=== PATIENT | male | born 1995 | race African-American/Black ===

== ENCOUNTER 2021-03-23 17:14 | Emergency (ER) | payer OTHER ==
[~2021-03-23] VITALS: Ht 175.3 cm; Wt 69.0 kg
[2021-03-23] MEDS ORDERED: IV NORMAL SALINE 1,000ML 1,000 ML IV ONE (17:30)
[2021-03-23] MEDS ORDERED: diphenhydrAMINE 50 MG/ML VIAL IVP ONE (17:30)
[2021-03-23] MEDS ORDERED: diphenhydrAMINE 50 MG/ML VIAL ONE (17:33)
[2021-03-23 17:56] LABS: BASO % 1 % (0-3); EOS # 0.1 x10^3/uL (0.0-0.7); EOS % 2 % (0-3); HEMATOCRIT 45.3 % (39.0-53.0); HEMOGLOBIN 15.3 g/dL (13.0-17.5); LYMPH # 1.9 x10^3/uL (1.0-4.8); LYMPH % 30 % (24-48); MEAN CORPUSCULAR HEMOGLOBIN 31 pg (25-35); MEAN CORPUSCULAR HGB CONC 34 g/dL (31-37); MEAN CORPUSCULAR VOLUME 90 fL (79-100); MONO # 0.6 x10^3/uL (0.0-1.1); MONO % 10 % (0-9); NEUT # 3.5 x10^3uL (1.8-7.7); NEUT % 57 % (31-73); PLATELET COUNT 286 x10^3/uL (140-400); RED BLOOD COUNT 5.03 x10^6/uL (4.30-5.70); RED CELL DISTRIBUTION WIDTH 13.6 % (11.5-14.5); WHITE BLOOD COUNT 6.2 x10^3/uL (4.0-11.0)
--- NOTE | 2021-03-23 17:59 | PHYS DOC ---
Past History Past Surgical History: No Surgical History (GINETTE MORENO DO) Alcohol Use: Rarely (GINETTE MORENO DO) General Adult EDM: Chief Complaint: HALLUCINATIONS AUDIBLE/VISUAL HPI: HPI: 25-year-old male presents via EMS after doing drugs. Patient is having hallucinations and feels like he is short of breath. He states that he took too many marijuana edibles. He was reporting visual hallucinations to EMS. He does not report anything specific to me. He feels like he is short of breath. He has no other specific complaints at this time. (GINETTE MORENO DO) Review of Systems: Review of Systems: Constitutional: Denies fever or chills Eyes: Denies change in visual acuity HENT: Denies nasal congestion or sore throat Respiratory: Denies cough or shortness of breath Cardiovascular: Denies chest pain or edema GI: Denies abdominal pain, nausea, vomiting, bloody stools or diarrhea : Denies dysuria Musculoskeletal: Denies back pain or joint pain Integument: Denies rash Neurologic: Denies headache, focal weakness or sensory changes Endocrine: Denies polyuria or polydipsia Lymphatic: Denies swollen glands Psychiatric: Visual hallucinations (GINETTE MORENO DO) Current Medications: Current Meds: Current Medications Medications (Trade) Dose Ordered Sig/Renae Start Time Stop Time Status Last Admin Dose Admin Diphenhydramine HCl (Benadryl) 50 mg STK-MED ONCE 03/23/21 17:33 03/23/21 17:33 DC Sodium Chloride 1,000 ml @ 1,000 mls/hr 1X ONCE 03/23/21 17:30 03/23/21 18:29 03/23/21 17:35 1,000 MLS/HR (GINETTE MORENO DO) Allergies: Allergies: Allergies Coded Allergies Type Severity Reaction Last Updated Verified No Known Drug Allergies 03/23/21 No (GINETTE MORENO DO) Physical Exam: PE: Constitutional: Well developed, well nourished, no acute distress, non-toxic appearance. [] HENT: Normocephalic, atraumatic, bilateral external ears normal, oropharynx moist, no oral exudates, nose normal. [] Eyes: PERRLA, EOMI, conjunctiva normal, no discharge. [] Neck: Normal range of motion, no tenderness, supple, no stridor. [] Cardiovascular: Heart rate regular rhythm, no murmur [] Lungs & Thorax: Bilateral breath sounds clear to auscultation [] Abdomen: Bowel sounds normal, soft, no tenderness, no masses, no pulsatile masses. [] Skin: Warm, dry, no erythema, no rash. [] Back: No tenderness, no CVA tenderness. [] Extremities: No tenderness, no cyanosis, no clubbing, ROM intact, no edema. [] Neurologic: Alert and oriented X 3, normal motor function, normal sensory function, no focal deficits noted. [] Psychologic: Affect pressured and scattered, judgement questionable, mood anxious. [] (GINETTE MORENO DO) Current Patient Data: Vital Signs: Vital Signs Date Time Temp Pulse Resp B/P (MAP) Pulse Ox O2 Delivery O2 Flow Rate FiO2 03/23/21 17:21 98.2 100 26 147/83 (104) 100 Room Air (GINETTE MORENO DO) EKG: EKG: [] (GINETTE MORENO DO) Radiology/Procedures: Radiology/Procedures: [] (GINETTE MORENO DO) Heart Score: C/O Chest Pain: N/A Risk Factors: Risk Factors: DM, Current or recent (<one month) smoker, HTN, HLP, family his tory of CAD, obesity. Risk Scores: Score 0 - 3: 2.5% MACE over next 6 weeks - Discharge Home Score 4 - 6: 20.3% MACE over next 6 weeks - Admit for Clinical Observation Score 7 - 10: 72.7% MACE over next 6 weeks - Early Invasive Strategies (GINETTE MORENO DO) Course & Med Decision Making: Course & Med Decision Making Pertinent Labs and Imaging studies reviewed. (See chart for details) The patient does not appear to be having any difficulty breathing. His oxygen saturation is 99% on room air. He is very fidgety and moving in the bed. Have given him 50 mg of Benadryl IV and ordered a chest x-ray. I am signing the patient out to Dr. Domingo at 1800. [] (GINETTE MORENO DO) Course & Med Decision Making Patient care handed off to me at checkout pending clinical sobriety from edible marijuana. Patient awake, alert and oriented able to take p.o. States he is feeling well and wants to go home. Discussed all findings with patient. Advised to cease taking any sort of medications unless prescribed by a physician. Vital signs now unremarkable. Patient able to sit, stand and walk without issue and asking to be discharged home. Advised to follow-up in the morning with his primary care physician. Gave return precautions to the ED. Patient grateful, verbalized understanding and agreed with plan of discharge. (GABBY DOMINGO MD) Dragon Disclaimer: Dragon Disclaimer: This electronic medical record was generated, in whole or in part, using a voice recognition dictation system. (GINETTE MORENO DO) Departure Departure: Impression: Primary Impression: Drug abuse Additional Impression: Visual hallucinations Disposition: HOME / SELF CARE / HOMELESS Condition: GOOD Referrals: WYATT ALEXIS MD Patient Instructions: Marijuana Abuse-Brief Additional Instructions: Thanks for coming into the emergency department tonight and allowing us to take care of you. Please read the attached information carefully to go back over some of the things we discussed. Please do not take any substances unless prescribed by a physician. Please be sure to stay hydrated and eat healthy meals. Please call your primary care physician in the morning or the 1 at the number provided to establish care to set up a follow-up visit. Please come back to the emergency department with new or concerning symptoms as we discussed. GINETTE MORENO DO Mar 23, 2021 17:59 GABBY DOMINGO MD Mar 23, 2021 19:13
[2021-03-23 18:34] LABS: CALCIUM 8.7 mg/dL (8.5-10.1); CREATININE 0.9 mg/dL (0.7-1.3); GFR 104.6; POTASSIUM 3.5 mmol/L (3.5-5.1)
--- NOTE | 2021-03-23 18:34 | RAD ---
XR CHEST 1V History: Reason: SOB / Spl. Instructions: / History: Comparison: None. Findings: No consolidation or pleural effusion. Normal heart size. No pneumothorax. Impression: 1. No acute cardiopulmonary process. Electronically signed by: Devin Olivares DO (03/23/2021 6:31 PM) [facility]
[2021-03-23 18:40] LABS: ALBUMIN 4.1 g/dL (3.4-5.0); ALBUMIN/GLOBULIN RATIO 1.2 (1.0-1.7); TOTAL BILIRUBIN 0.5 mg/dL (0.2-1.0); TOTAL PROTEIN 7.4 g/dL (6.4-8.2)
[2021-03-23 19:16] VITALS: BP 135/80
== END 2021-03-23 19:17 | disposition home or self-care (01) ==
LOC: ER 18:07
DX: R44.1 Visual hallucinations (principal); F12.10 Cannabis abuse, uncomplicated
CPT/HCPCS: 36415; 71045; 80053; 85025; 96361; 96374; 99284; J1200; J7030

== ENCOUNTER 2021-06-21 16:58 | Emergency (ER) | payer OTHER ==
[~2021-06-21] VITALS: Ht 175.3 cm; Wt 67.2 kg
--- NOTE | 2021-06-21 17:25 | PHYS DOC ---
Past History Past Surgical History: No Surgical History Alcohol Use: None General Adult EDM: Chief Complaint: RECTAL BLEED HPI: HPI: 25-year-old male presents with blood in his stool. The patient had a bowel movement today which was very loose and it was laced with red blood. The patient never had this before. He came in for evaluation. He states that it was painless at the time and he has no abdominal or rectal pain at this time. No history of bowel issues. He has had diarrhea for the last 2 to 3 days which she thinks is related to drinking a lot of eggnog. He denies fever or chills. He has no other complaints this time. Review of Systems: Review of Systems: Constitutional: Denies fever or chills Eyes: Denies change in visual acuity HENT: Denies nasal congestion or sore throat Respiratory: Denies cough or shortness of breath Cardiovascular: Denies chest pain or edema GI: Diarrhea, blood in stool. Denies abdominal pain, nausea, vomiting. : Denies dysuria Musculoskeletal: Denies back pain or joint pain Integument: Denies rash Neurologic: Denies headache, focal weakness or sensory changes Endocrine: Denies polyuria or polydipsia Lymphatic: Denies swollen glands Psychiatric: Denies depression or anxiety Allergies: Allergies: Allergies Coded Allergies Type Severity Reaction Last Updated Verified No Known Drug Allergies 06/21/21 No Physical Exam: PE: Constitutional: Well developed, well nourished, no acute distress, non-toxic appearance. [] HENT: Normocephalic, atraumatic, bilateral external ears normal, oropharynx moist, no oral exudates, nose normal. [] Eyes: PERRLA, EOMI, conjunctiva normal, no discharge. [] Neck: Normal range of motion, no tenderness, supple, no stridor. [] Cardiovascular:Heart rate regular rhythm, no murmur [] Lungs & Thorax: Bilateral breath sounds clear to auscultation [] Abdomen: Bowel sounds normal, soft, no tenderness, no masses, no pulsatile masses. [] Skin: Warm, dry, no erythema, no rash. [] Back: No tenderness, no CVA tenderness. [] Extremities: No tenderness, no cyanosis, no clubbing, ROM intact, no edema. [] Neurologic: Alert and oriented X 3, normal motor function, normal sensory function, no focal deficits noted. [] Psychologic: Affect normal, judgement normal, mood normal. : normal external rectum, EDILBERTO unremarkable, no significant pain [] Current Patient Data: Vital Signs: Vital Signs Date Time Temp Pulse Resp B/P (MAP) Pulse Ox O2 Delivery O2 Flow Rate FiO2 06/21/21 17:09 98.5 80 18 110/78 (89) 98 Room Air EKG: EKG: [] Radiology/Procedures: Radiology/Procedures: [] Heart Score: C/O Chest Pain: N/A Risk Factors: Risk Factors: DM, Current or recent (<one month) smoker, HTN, HLP, family history of CAD, obesity. Risk Scores: Score 0 - 3: 2.5% MACE over next 6 weeks - Discharge Home Score 4 - 6: 20.3% MACE over next 6 weeks - Admit for Clinical Observation Score 7 - 10: 72.7% MACE over next 6 weeks - Early Invasive Strategies Course & Med Decision Making: Course & Med Decision Making Pertinent Labs and Imaging studies reviewed. (See chart for details) The patient's labs are unremarkable. His hemoglobin is normal. This is likely localized irritation due to the diarrhea. Advised that he monitor the situation and if he has increased bleeding or other new symptoms he will need to return to the emergency room or follow-up with his PCP. He is stable for discharge at this time. [] Dragon Disclaimer: Natalie Disclaimer: This electronic medical record was generated, in whole or in part, using a voice recognition dictation system. Departure Departure: Impression: Primary Impression: Diarrhea Additional Impression: Rectal bleeding Disposition: HOME / SELF CARE / HOMELESS Condition: STABLE Referrals: PCP,JOAN (PCP) Patient Instructions: Rectal Bleeding, [id number] GINETTE MORENO DO Jun 21, 2021 17:25
[2021-06-21 17:45] LABS: BASO % 1 % (0-3); EOS # 0.1 x10^3/uL (0.0-0.7); EOS % 2 % (0-3); HEMATOCRIT 44.1 % (39.0-53.0); HEMOGLOBIN 15.1 g/dL (13.0-17.5); LYMPH # 1.5 x10^3/uL (1.0-4.8); LYMPH % 31 % (24-48); MEAN CORPUSCULAR HEMOGLOBIN 30 pg (25-35); MEAN CORPUSCULAR HGB CONC 34 g/dL (31-37); MEAN CORPUSCULAR VOLUME 89 fL (79-100); MONO # 0.6 x10^3/uL (0.0-1.1); MONO % 12 % (0-9); NEUT # 2.6 x10^3uL (1.8-7.7); NEUT % 55 % (31-73); PLATELET COUNT 259 x10^3/uL (140-400); RED BLOOD COUNT 4.95 x10^6/uL (4.30-5.70); RED CELL DISTRIBUTION WIDTH 13.5 % (11.5-14.5); WHITE BLOOD COUNT 4.8 x10^3/uL (4.0-11.0)
[2021-06-21 17:51] LABS: FECAL OB PT POSITIVE (NEG)
[2021-06-21 17:56] VITALS: BP 110/64
[2021-06-21 17:59] LABS: CALCIUM 8.8 mg/dL (8.5-10.1); POTASSIUM 3.7 mmol/L (3.5-5.1)
[2021-06-21 18:04] LABS: ALBUMIN 4.2 g/dL (3.4-5.0); ALBUMIN/GLOBULIN RATIO 1.1 (1.0-1.7); TOTAL BILIRUBIN 0.4 mg/dL (0.2-1.0)
== END 2021-06-21 17:57 | disposition home or self-care (01) ==
LOC: ER 16:58
DX: K62.5 Hemorrhage of anus and rectum (principal); R19.7 Diarrhea, unspecified
CPT/HCPCS: 36415; 80053; 82274; 85025; 99283